=== PATIENT | female | born 1975 | race Two or more races ===

== ENCOUNTER → 2016-10-10 | Outpatient (CLI) | payer OTHER ==
[~2016-10-10] MED LIST: TYLENOL EXTRA500 M1 PO; ZANTAC150 M1 PO
--- NOTE | ~2016-10-10 | MY29 ---
[facility] A Service of [facility] RADIOLOGY TEXT RESULTS PATIENT: MICH ARROYO LOCATION: [facility] : 71 UNIT #: [id number] AGE: [address]: JODIE ENGLE APRN SEX: F ORDER DR: [id number] [facility] [address] [place], [place] [address] [id number] O MR#: [id number] Acc #: [id number] NAME: MICH ARROYO : 1975 SEX: F STUDY DATE/TIME: 10/10/2016 16:01 UNIT: [facility] ROOM: STUDY DESCRIPTION: MY MARIALUISA SCREENING W/ CAD BILAT Attending Physician: Oleg Engle M.D. Ordering Physician: Oleg Engle M.D. Primary Care Physician: Gomez Goel M.D. MEDICAL IMAGING REPORT This report is preliminary unless electronic signature is present EXAM Digital screening mammogram, 10/10/2016 HISTORY 41-year-old woman no risk elevation. Annual screening. COMPARISON Baseline, 03/14/2015 FINDINGS Digital imaging of each breast was completed utilizing screening protocol. Review includes FDA-approved CAD device. Breast parenchyma is heterogeneously dense and stable. There is mild parenchymal dominance noted in the upper outer quadrant of the left breast and lower hemisphere of the right breast. I see no suspicious mass characteristics. There are no interval occurring microcalcifications and no architectural deformity. Subareolar duct prominence is stable in each breast. IMPRESSION Negative mammogram. Annual screening recommended. Patients over the age of 40 are entered into a reminder system with target due date for the next mammogram. A result letter will also be sent to the patient. BIRADS: 1 Negative Dictated by... Jose Marcus M.D. THIS IS AN ELECTRONICALLY VERIFIED REPORT Jose Marcus M.D. at 10/11/2016 12:09 PM BOBBI/joe [facility] A Service of [facility] RADIOLOGY TEXT RESULTS PATIENT: MICH ARROYO LOCATION: [facility] : 71 UNIT #: [id number] AGE: [address]: JODIE ENGLE APRN SEX: F ORDER DR: TD: 10/11/2016 10:19 JOB #: [id number] MEDICAL IMAGING REPORT Page 1 of 1 COPY
== END | disposition home or self-care (01) ==
LOC: CWCC 15:38
DX: Z12.31 Encounter for screening mammogram for malignant neoplasm of breast (principal)
CPT/HCPCS: G0202

== ENCOUNTER → 2016-11-25 | Day surgery (SDC) | payer OTHER ==
--- NOTE | ~2016-11-25 | OR ---
Unit #: [id number] #: [id number] Patient: MICH ARROYO [id number] [address] [place], [place] [address] [id number] O MR#: [id number] NAME: MICH ARROYO ROOM: Date of Procedure: 11/25/2016 Admission Date: 11/25/2016 Surgeon: Lio Zuniga M.D. : 1975 Attending Physician: Lio Zuniga M.D. Primary Care Physician: Gomez Goel M.D. OPERATIVE REPORT PRIMARY CARE PHYSICIAN Gomez Goel M.D. and Oleg Engle APRN. PREOPERATIVE DIAGNOSIS Left upper quadrant abdominal pain as well as epigastric pain and history of gastroesophageal reflux and heartburn. PROCEDURES PERFORMED Upper gastrointestinal endoscopy and biopsy. POSTOPERATIVE DIAGNOSES Completely normal examination up to third part of duodenum. No evidence of esophagitis nor any stricture or gastritis was seen. The biopsies obtained from the antrum for CLOtest. RECOMMENDATIONS The patient being empirically started on omeprazole 40 mg p.o. once a day. She will be followed up in the office in 3 months' time. SEDATION USED MAC. DESCRIPTION OF PROCEDURE Following detailed explanation of the potential risks and complications of an upper endoscopy, namely perforation, bleeding, and complications related to sedation, the patient was brought to GI lab and laid in the left lateral decubitus position. Lubricated tip of the Olympus video upper endoscope was passed through the bite block into the proximal esophagus under direct vision. The entire esophageal mucosa was examined and appeared normal. There being no evidence of esophagitis nor any stricture or mucosal ring nor any hiatus hernia. The scope was then advanced into the gastric cavity and the latter was insufflated. Mucosa of the fundus, body, and antrum examined and appeared unremarkable. Pylorus was intubated with visualization of the normal duodenal bulb and second and third part duodenum. Upon withdrawal and retroflexion, incisura, cardia, and greater curve examined and biopsy obtained from the antrum for CLOtest. The scope was then withdrawn in the distal esophagus. The entire esophageal mucosa was examined all the way up to pharynx and no additional findings noted. The patient tolerated the procedure without any postprocedure complications. Unit #: [id number] #: [id number] Patient: MICH ARROYO Dictated by... Brittany Alfredo/car TD: 11/25/2016 12:05 JOB #: [id number] OPERATIVE REPORT Page 1 of 1 X Lio Zuniga MD PROCEDURE OPERATIVE NOTE
== END | disposition home or self-care (01) ==
LOC: COPS 08:04
PROVIDERS: Internal Medicine Gastroenterology
PROC: 0DB78ZX Excision of Stomach, Pylorus, Via Natural or Artificial Opening Endoscopic, Diagnostic (ICD-10-PCS; principal; 2016-11-25 10:00)
DX: R10.32 Left lower quadrant pain (principal); R10.13 Epigastric pain; Z79.899 Other long term (current) drug therapy
CPT/HCPCS: 84703; 87077